=== PATIENT | male | born 1980 | race Two or more races ===

== ENCOUNTER 2019-12-25 20:03 | Emergency (ER) | payer OTHER ==
[~2019-12-25] VITALS: Ht 175.3 cm; Wt 70.0 kg
--- NOTE | 2019-12-25 20:42 | PHYS DOC ---
Past Medical History Past Medical History: HIV, Hepatitis, Other Additional Past Medical Histor: MRSA, HEP C, SICKLE CELL TRAIT Past Surgical History: Other Additional Past Surgical Histo: "ABDOMINAL SURGERY" Smoking Status: Unknown if ever smoked Alcohol Use: None Adult General Chief Complaint Chief Complaint: ABNORMAL LABS [facility] HPI Patient is a 39 year old male patient who presents from [facility] with staff, patient had reportedly had labs drawn today to evaluate his HIV and hep C status as a routine testing. Reports following the lab draw, he was later advised his hemoglobin was 5.2 and he needed to go to the ER. States he feels good, denies any hematuria, denies any melena, denies any dark stools, denies any active bleeding. States he feels good, denies shortness of breath, denies dizziness. States he has not had any concerns. Reports his HIV is unchanged according to his lab results. Denies any trauma. Review of Systems Review of Systems Constitutional: Denies fever or chills [] Eyes: Denies change in visual acuity, redness, or eye pain [] HENT: Denies nasal congestion or sore throat [] Respiratory: Denies cough or shortness of breath [] Cardiovascular: No additional information not addressed in HPI [] GI: Denies abdominal pain, nausea, vomiting, bloody stools or diarrhea [] : Denies dysuria or hematuria [] Musculoskeletal: Denies back pain or joint pain [] Integument: Denies rash or skin lesions [] Neurologic: Denies headache, focal weakness or sensory changes [] Endocrine: Denies polyuria or polydipsia [] All other systems were reviewed and found to be within normal limits, except as documented in this note. Allergies Allergies Allergies Coded Allergies Type Severity Reaction Last Updated Verified No Known Drug Allergies 12/25/19 No Physical Exam Physical Exam Constitutional: Well developed, well nourished, no acute distress, non-toxic appearance. [] HENT: Normocephalic, atraumatic, bilateral external ears normal, oropharynx moist, no oral exudates, nose normal. [] Eyes: PERRLA, EOMI, conjunctiva normal, no discharge. [] Neck: Normal range of motion, no tenderness, supple, no stridor. [] Cardiovascular:Heart rate regular rhythm, no murmur [] Lungs & Thorax: Bilateral breath sounds clear to auscultation [] Abdomen: Bowel sounds normal, soft, no tenderness, no masses, no pulsatile masses. [] Skin: Warm, dry, no erythema, no rash. [] Back: No tenderness, no CVA tenderness. [] Extremities: No tenderness, no cyanosis, no clubbing, ROM intact, no edema. [] Neurologic: Alert and oriented X 3, normal motor function, normal sensory function, no focal deficits noted. [] Psychologic: Affect normal, judgement normal, mood normal. [] Current Patient Data Vital Signs Vital Signs Date Time Temp Pulse Resp B/P (MAP) Pulse Ox O2 Delivery O2 Flow Rate FiO2 12/25/19 23:13 98.3 74 16 104/56 98.3 12/25/19 23:12 100 Room Air Lab Values Laboratory Tests Test 12/25/19 20:21 White Blood Count 3.5 x10^3/uL (4.0-11.0) L Red Blood Count 3.02 x10^6/uL (4.30-5.70) L Hemoglobin 5.3 g/dL (13.0-17.5) *L Hematocrit 18.6 % (39.0-53.0) *L Mean Corpuscular Volume 62 fL (79-100) L Mean Corpuscular Hemoglobin 18 pg (25-35) L Mean Corpuscular Hemoglobin Concent 28 g/dL (31-37) L Red Cell Distribution Width 23.2 % (11.5-14.5) H Platelet Count 237 x10^3/uL (140-400) Neutrophils (%) (Auto) 41 % (31-73) Lymphocytes (%) (Auto) 47 % (24-48) Monocytes (%) (Auto) 10 % (0-9) H Eosinophils (%) (Auto) 2 % (0-3) Basophils (%) (Auto) 1 % (0-3) Neutrophils # (Auto) 1.4 x10^3/uL (1.8-7.7) L Lymphocytes # (Auto) 1.6 x10^3/uL (1.0-4.8) Monocytes # (Auto) 0.3 x10^3/uL (0.0-1.1) Eosinophils # (Auto) 0.1 x10^3/uL (0.0-0.7) Basophils # (Auto) 0.0 x10^3/uL (0.0-0.2) Segmented Neutrophils % 49 % (35-66) Band Neutrophils % 2 % (0-9) Lymphocytes % 27 % (24-48) Monocytes % 16 % (0-10) H Eosinophils % 5 % (0-5) Basophils % 1 % (0-3) Platelet Estimate Adequate (ADEQUATE) Polychromasia Slight Hypochromasia Marked Anisocytosis Mod Microcytosis Marked Schistocytes Occ Prothrombin Time 13.9 SEC (11.7-14.0) Prothrombin Time INR 1.1 (0.8-1.1) Sodium Level 143 mmol/L (136-145) Potassium Level 3.7 mmol/L (3.5-5.1) Chloride Level 110 mmol/L (98-107) H Carbon Dioxide Level 26 mmol/L (21-32) Anion Gap 7 (6-14) Blood Urea Nitrogen 11 mg/dL (8-26) Creatinine 1.0 mg/dL (0.7-1.3) Estimated GFR (Cockcroft-Gault) 83.2 BUN/Creatinine Ratio 11 (6-20) Glucose Level 83 mg/dL (70-99) Calcium Level 8.4 mg/dL (8.5-10.1) L Total Bilirubin 0.4 mg/dL (0.2-1.0) Aspartate Amino Transferase (AST) 23 U/L (15-37) Alanine Aminotransferase (ALT) 27 U/L (16-63) Alkaline Phosphatase 81 U/L (46-116) Total Protein 6.4 g/dL (6.4-8.2) Albumin 3.1 g/dL (3.4-5.0) L Albumin/Globulin Ratio 0.9 (1.0-1.7) L Laboratory Tests 12/25/19 20:21 Laboratory Tests 12/25/19 20:21 EKG EKG [] Radiology/Procedures Radiology/Procedures [] Course & Med Decision Making Course & Med Decision Making Pertinent Labs and Imaging studies reviewed. (See chart for details) [Discussed with patient lab findings, recommendation for transfusion. Patient in agreement with plan for transfusion, will plan to administer 2 units and discharge back to facility with patient plan to follow up for further evaluation of his anemia. Will consider Rx for Iron] Dragon Disclaimer Dragon Disclaimer This electronic medical record was generated, in whole or in part, using a voice recognition dictation system. Departure Departure Impression: Primary Impression: Hypochromic microcytic anemia Disposition: HOME, SELF-CARE Condition: STABLE Patient Instructions: Anemia, Nonspecific-Brief Additional Instructions: As we discussed, you need to have your anemia evaluated further. This can be done with your primary care provider or [facility]. / Lorin hablemos, necesita mas evaluacion de la cause de lemus anemia. Eso puede hacer en la clinica de lemus medico o lo quien mantenga cuida de marita ej ERIBERTO RAMÍREZ E VALERIY Dec 25, 2019 20:42
[2019-12-25 20:50] LABS: BASO % 1 % (0-3); EOS # 0.1 x10^3/uL (0.0-0.7); EOS % 2 % (0-3); LYMPH # 1.6 x10^3/uL (1.0-4.8); LYMPH % 47 % (24-48); MEAN CORPUSCULAR HEMOGLOBIN 18 pg (25-35); MEAN CORPUSCULAR HGB CONC 28 g/dL (31-37); MEAN CORPUSCULAR VOLUME 62 fL (79-100); MONO # 0.3 x10^3/uL (0.0-1.1); MONO % 10 % (0-9); NEUT # 1.4 x10^3/uL (1.8-7.7); NEUT % 41 % (31-73); PLATELET COUNT 237 x10^3/uL (140-400); RED BLOOD COUNT 3.02 x10^6/uL (4.30-5.70); RED CELL DISTRIBUTION WIDTH 23.2 % (11.5-14.5); WHITE BLOOD COUNT 3.5 x10^3/uL (4.0-11.0)
[2019-12-25 20:54] LABS: PROTHROMBIN TIME PATIENT 13.9 SEC (11.7-14.0)
[2019-12-25 20:59] LABS: CALCIUM 8.4 mg/dL (8.5-10.1); GFR 83.2; HEMATOCRIT 18.6 % (39.0-53.0); HEMOGLOBIN 5.3 g/dL (13.0-17.5); POTASSIUM 3.7 mmol/L (3.5-5.1)
[2019-12-25 21:05] LABS: ALBUMIN 3.1 g/dL (3.4-5.0); ALBUMIN/GLOBULIN RATIO 0.9 (1.0-1.7); TOTAL BILIRUBIN 0.4 mg/dL (0.2-1.0); TOTAL PROTEIN 6.4 g/dL (6.4-8.2)
[2019-12-25 21:27] LABS: % BANDS 2 % (0-9); % BASOS 1 % (0-3); % EOS 5 % (0-5); % LYMPHS 27 % (24-48); % MONOS 16 % (0-10); % SEGS 49 % (35-66)
[2019-12-25 21:31] LABS: ANISOCYTOSIS MOD; HYPOCHROMIA MARKED; MICROCYTOSIS MARKED; PLT ESTIMATE ADEQUATE (ADEQUATE); POLYCHROMASIA SLIGHT; SCHISTOCYTES OCC
[2019-12-25 22:58] VITALS: BP 114/59
[2019-12-25 23:03] VITALS: BP 105/57
[2019-12-25 23:08] VITALS: BP 104/57
[2019-12-25 23:13] VITALS: BP 104/56
[2019-12-26 00:50] VITALS: BP 110/66
[2019-12-26 00:55] VITALS: BP 118/68
[2019-12-26 01:00] VITALS: BP 113/65
[2019-12-26 01:05] VITALS: BP 115/67
[2019-12-26 02:27] VITALS: BP 130/80
== END 2019-12-26 02:30 | disposition home or self-care (01) ==
LOC: EEVIPCON 20:03 → ER 20:03
DX: D50.8 Other iron deficiency anemias (principal); Z98.890 Other specified postprocedural states
CPT/HCPCS: 36415; 36430; 80053; 85007; 85025; 85610; 86850; 86900; 86901; 86920; 99285; P9016